=== PATIENT | male | born 1980 | race Caucasian/White ===

== ENCOUNTER 2023-01-24 16:44 | Emergency (ER) | payer BC, SELFPAY ==
--- NOTE | ~2023-01-24 | XR_ITS ---
XR knee RT 3V 01/24/2023 17:19 Indication: Right knee pain Procedure: 3 views right knee Comparison: No prior studies for comparison. Findings: There is an unfused tibial apophysis. No fracture or traumatic malalignment. No joint effus ion. Mild infrapatellar soft tissue swelling anteriorly. No foreign bodies. Impression: 1: No acute fracture. Reviewed, dictated and finalized at location [facility] [employer] Impression: 1: No acute fracture.
[2023-01-24 17:00] VITALS: BP 202/129; BP 203/126; PULSE 92; RESP 16; TEMP 37.2; O2SAT 100
--- NOTE | 2023-01-24 17:33 | ED.GENADULT ---
HPI - General Adult General Chief complaint: Extremity Injury, Lower Stated complaint: Knee pain Time Seen by Provider: 01/24/23 17:33 Source: patient, RN notes reviewed and old records reviewed Mode of arrival: ambulatory Limitations: no limitations History of Present Illness HPI narrative: 42-year-old male who presents to [facility] with complaints of pain to his right knee anteriorly since Tuesday, pain especially when bending his knee.Patient reports that he has had some fevers and chills for the past 2 days with no other symptoms. Patient denies any injury to his right knee only thing different patient states is that he had a bad cat scratch to the side of his right foot about a week ago. Patient reports that he has not had any injury to his knee but pain anteriorly with some swelling noted to knee with some warmth increased pain with bending no increased pain when walking.. Patient to be referred to ortho for further evaluation, no knee joint effusion noted per x-ray. Blood pressure is elevated and patient reports no family doctor reports family history of hypertension family concerned of blood pressure readings. MD complaint: right knee pain without injury Onset (ago): day(s) (3 days ) Location: lower extremity (right knee) Severity: severe Severity scale (1-10): 10 Quality: aching Pain Consistency: constant Exacerbating factors: other (bending knee) Treatments prior to arrival: other (Tylenol) Related Data Allergies Allergy/AdvReac Type Severity Reaction Status Date / Time No Known Allergies Allergy Verified 01/24/23 16:56 Review of Systems Review of Systems: CONSTITUTIONAL: Denies fever, chills, or sweats. EYES: Denies visual changes, redness, or discharge. ENT: Denies rhinorrhea, congestion, sore throat, or otalgia. CARDIOVASCULAR: Denies chest pain, palpitations, or edema. RESPIRATORY: Denies cough or dyspnea. GASTROINTESTINAL: Denies abdominal pain, nausea, vomiting, or diarrhea. GENITOURINARY: Denies dysuria or hematuria. SKIN: Denies rash or itching. MUSCULOSKELETAL: Denies back pain, positive for right knee pain constant with warmth and some swelling, increases with bending, or myalgia. NEUROLOGIC: Denies headache, numbness, or weakness. PSYCHIATRIC: Denies anxiety or depression. All systems reviewed & are unremarkable except as noted in HPI and below [facility] Past Medical History Medical History (Updated 01/25/23 @ 10:54 by Trish Higginbotham NP) Farrar-Schlatter's disease Social History Social History (Updated 01/25/23 @ 10:49 by Trish Higginbotham NP) Smoking packs per day: 0.5 Smoking cigarettes per day: 10.0 Smoking status: Current every day smoker Tobacco type: cigarettes Alcohol intake: current Alcohol use details: social Substance use type: does not use Living arrangements: with family Gender identity (if verbalized by the patient): Male Comments At time of signature, agree with nursing past medical, surgical, social and family history. There is no relevant family history pertinent to the presenting complaint Exam Narrative: GENERAL: Well-appearing, well-nourished, and in no acute distress. HEAD: Normocephalic, atraumatic. EYES: PERRLA and EOMI. ENT: Nares clear, no rhinorrhea or epistaxis. Mucous membranes moist. NECK: Supple. CHEST: Clear to auscultation. No respiratory distress. HEART: Regular rate and rhythm. No murmur heard. Normal peripheral pulses. ABDOMEN: Soft, nontender, nondistended, normal active bowel sounds. EXTREMITIES: Normal range of motion. No edema. SKIN: Warm, dry, no rash. NEURO: No focal deficits. Alert and oriented x3. Course Course Emergency Course: Patient is aware of diagnosis, understands and agrees to treatment plan.? Anticipatory guidance given.? Patient agrees to follow-up as directed and is aware of reasons to seek care at the emergency department. Portions of this record may have been created with voice recognition software Level
[2023-01-24 18:13] VITALS: BP 211/125
== END 2023-01-24 18:47 | disposition home or self-care (01) ==
PROVIDERS: Emergency Provider Registered Nurse
DX: M70.41 Prepatellar bursitis, right knee (principal); F17.210 Nicotine dependence, cigarettes, uncomplicated; I10 Essential (primary) hypertension
CPT/HCPCS: 73562; 99213; G0463